=== PATIENT | female | born 1985 | race Caucasian/White ===

== ENCOUNTER 2017-12-19 13:10 | Emergency (ER) | payer BC ==
--- NOTE | 2017-12-19 15:07 | EDM.PDOC ---
ED HPI GENERAL MEDICAL PROBLEM - General Chief Complaint: General Stated Complaint: LETHARGIC/FEVER Time Seen by Provider: 12/19/17 13:55 Source of Information: Reports: Patient History Limitations: Reports: No Limitations - History of Present Illness INITIAL COMMENTS - FREE TEXT/NARRATIVE: 32 year old female presents for evaluation and treatment of fevers and lethargy. State symptoms have been going on for the last few days, worse today. She has not taken her temperature at home but has felt chilled. She also reports lightheadedness, dizziness and trouble sleeping. She denies any syncope , vomiting, unintentional weight loss or weight gain. She reports she is having trouble staying asleep. She reports over the last month she has felt very run down. She reports the last 3 days she has had headaches which she has been taking aleve for. No shortness of breath or chest pain. Patient reports on April 30, 2017 she had a left sided thyroidectomy. This was done at [facility] in [place]. States the path report was clear of any cancer. AT this time she no longer follows-up with [facility]. She reports yesterday she appreciated a lump to the right thyroid. LMP started on Saturday. Patient reports she works for [employer]. She states her job is very active with long hours often working 12-13 hours a day. Review of the patient's records show she had an ultrasound of her neck done about 4 months ago. It showed multiple small lymph nodes. In regards to the patient's bradycardia, she states she has never had a heart rate this low. Review of the patient's clinic records show most hear rates in the 70s with one documented in the 50s. Generalized Pain Score (Numeric/FACES): 3 - Related Data Allergies Allergy/AdvReac Type Severity Reaction Status Date / Time morphine AdvReac Vomiting Verified 12/19/17 13:19 Home Meds: Home Meds Multivitamin with Minerals [Multiple Vitamin] 1 tab PO DAILY 04/26/14 [History] Past Medical History - Past Surgical History Endocrine Surgical History: Reports: Thyroidectomy Social & Family History - Tobacco Use Smoking Status *Q: Current Every Day Smoker Years of Tobacco use: 10 Packs/Tins Daily: 0.5 - Caffeine Use Caffeine Use: Reports: None - Recreational Drug Use Recreational Drug Use: No ED ROS GENERAL - Review of Systems Review Of Systems: See Below Constitutional: Reports: Chills, Fatigue, Other (trouble sleeping). Denies: Fever, Weight Loss, Weight Gain Respiratory: Denies: Shortness of Breath Cardiovascular: Reports: Lightheadedness. Denies: Chest Pain, Syncope Endocrine: Reports: Fatigue, Other (reports right sided thyroid lump) GI/Abdominal: Reports: Nausea. Denies: Vomiting Neurological: Reports: Dizziness, Headache ED EXAM, GENERAL - Physical Exam Exam: See Below Exam Limited By: No Limitations General Appearance: Alert, WD/WN, No Apparent Distress Eye Exam: Bilateral Eye: Normal Inspection Ears: Normal External Exam, Normal Canal, Hearing Grossly Normal, Normal TMs Nose: Normal Inspection Throat/Mouth: Normal Inspection Neck: Normal Inspection, Lymphadenopathy (R) (approximately seth sized papable lymph node vs. thyroid nodule) Respiratory/Chest: No Respiratory Distress, Lungs Clear, Normal Breath Sounds Cardiovascular: Normal Peripheral Pulses, Regular Rate, Rhythm, No Murmur GI/Abdominal: Normal Bowel Sounds, Soft, Non-Tender Neurological: Alert, Oriented, Normal Cognition Psychiatric: Normal Affect, Normal Mood Skin Exam: Warm, Dry, Normal Color EKG INTERPRETATION EKG Date: 12/19/17 Time: 13:40 Rhythm: Other (sinus bradycardia) Rate (Beats/Min): [address]: Normal P-Wave: Present QRS: Normal ST-T: Normal QT: Normal EKG Interpretation Comments: sinus bradycardia at 45 bpm. PAC. No acute ischemic changes. Reviewed by myself and Dr. Pena. Course - Vital Signs Last Recorded V/S: Last Vital Signs Temp 98.3 F 12/19/17 15:58 Pulse 60 12/19/17 13:16 Resp 18 12/19/17 13:16 BP 129/69 12/19/17 13:16 Pulse Ox 100 12/19/17 13:16 Orthostatic Blood Pressure [ 119/75 Standing] Orthostatic Blood Pressure [ 134/70 Sitting] Orthostatic Blood Pressure [ 127/83 Supine] - Orders/Labs/Meds Labs: Laboratory Tests 12/19/17 12/19/17 12/19/17 Range/Units 13:50 13:50 14:06 WBC 7.45 (3.98-10.04) K/mm3 RBC 4.38 (3.98-5.22) M/mm3 Hgb 12.0 (11.2-15.7) gm/L Hct 37.5 (34.1-44.9) % MCV 85.6 (79.4-94.8) fl MCH 27.4 (25.6-32.2) pg MCHC 32.0 L (32.2-35.5) g/dl RDW Std Deviation 45.6 (36.4-46.3) fL Plt Count 278 (182-369) K/mm3 MPV 11.0 (9.4-12.3) fl Neutrophils % (Manual) 68 H (40-60) % Band Neutrophils % 0 (0-10) % Lymphocytes % (Manual) 26 (20-40) % Monocytes % (Manual) 3 (2-10) % Eosinophils % (Manual) 3 (0.7-5.8) % Basophils % (Manual) 0 L (0.1-1.2) Platelet Estimate Adequate RBC Morph Comment Normal Sodium (136-145) mEq/L Potassium (3.5-5.1) mEq/L Chloride (98-107) mEq/L Carbon Dioxide (21-32) mEq/L Anion Gap (5-15) BUN (7-18) mg/dL Creatinine (0.55-1.02) mg/dL Est Cr Clr Drug Dosing mL/min Estimated GFR (MDRD) (>60) mL/min BUN/Creatinine Ratio (14-18) Glucose (74-106) mg/dL Calcium (8.5-10.1) mg/dL Total Bilirubin (0.2-1.0) mg/dL AST (15-37) U/L ALT (14-59) U/L Alkaline Phosphatase (46-116) U/L C-Reactive Protein (<1.0) mg/dL Total Protein (6.4-8.2) g/dl Albumin (3.4-5.0) g/dl Globulin gm/dL Albumin/Globulin Ratio (1-2) Free T4 (0.76-1.46) ng/dL TSH 3rd Generation (0.358-3.74) uIU/mL Urine Color Light yellow (Yellow) Urine Appearance Clear (Clear) Urine pH 6.5 (5.0-8.0) Ur Specific [place] 1.015 (1.005-1.030) Urine Protein Negative (Negative) Urine Glucose (UA) Negative (Negative) Urine Ketones Negative (Negative) Urine Occult Blood 1+ H (Negative) Urine Nitrite Negative (Negative) Urine Bilirubin Negative (Negative) Urine Urobilinogen 0.2 (0.2-1.0) Ur Leukocyte Esterase Negative (Negative) Urine HCG, Qual Negative (NEGATIVE) 12/19/17 Range/Units 14:06 WBC (3.98-10.04) K/mm3 RBC (3.98-5.22) M/mm3 Hgb (11.2-15.7) gm/L Hct (34.1-44.9) % MCV (79.4-94.8) fl MCH (25.6-32.2) pg MCHC (32.2-35.5) g/dl RDW Std Deviation (36.4-46.3) fL Plt Count (182-369) K/mm3 MPV (9.4-12.3) fl Neutrophils % (Manual) (40-60) % Band Neutrophils % (0-10) % Lymphocytes % (Manual) (20-40) % Monocytes % (Manual) (2-10) % Eosinophils % (Manual) (0.7-5.8) % Basophils % (Manual) (0.1-1.2) Platelet Estimate RBC Morph Comment Sodium 141 (136-145) mEq/L Potassium 3.4 L (3.5-5.1) mEq/L Chloride 103 (98-107) mEq/L Carbon Dioxide 25 (21-32) mEq/L Anion Gap 16.4 H (5-15) BUN 10 (7-18) mg/dL Creatinine 0.7 (0.55-1.02) mg/dL Est Cr Clr Drug Dosing 113.24 mL/min Estimated GFR (MDRD) > 60 (>60) mL/min BUN/Creatinine Ratio 14.3 (14-18) Glucose 83 (74-106) mg/dL Calcium 8.5 (8.5-10.1) mg/dL Total Bilirubin 0.6 (0.2-1.0) mg/dL AST 19 (15-37) U/L ALT 25 (14-59) U/L Alkaline Phosphatase 39 L (46-116) U/L C-Reactive Protein < 0.2 (<1.0) mg/dL Total Protein 7.2 (6.4-8.2) g/dl Albumin 3.9 (3.4-5.0) g/dl Globulin 3.3 gm/dL Albumin/Globulin Ratio 1.2 (1-2) Free T4 1.02 (0.76-1.46) ng/dL TSH 3rd Generation 2.738 (0.358-3.74) uIU/mL Urine Color (Yellow) Urine Appearance (Clear) Urine pH (5.0-8.0) Ur Specific [place] (1.005-1.030) Urine Protein (Negative) Urine Glucose (UA) (Negative) Urine Ketones (Negative) Urine Occult Blood (Negative) Urine Nitrite (Negative) Urine Bilirubin (Negative) Urine Urobilinogen (0.2-1.0) Ur Leukocyte Esterase (Negative) Urine HCG, Qual (NEGATIVE) - Radiology Interpretation Free Text/Narrative:: Neck ultrasound: Multiple real-time images of the neck were obtained. Absent right lobe of the thyroid gland is seen compatible with previous partial thyroidectomy. Left lobe of the thyroid gland appears within normal limits. Several small normal-appearing lymph nodes are seen. No cyst or solid abnormality is otherwise seen within the neck. Impression: 1. Incidental findings as noted above. - Re-Assessments/Exams Free Text/Narrative Re-Assessment/Exam: 12/19/17 15:36 I reviewed the labs, EKG and imaging with the patient. At this point is unclear what is causing bradycardia, fatigue and dizziness. I will send her home with a 48-hour Holter monitor and she is instructed to follow up with her primary care provider early next week. She may require additional testing such as possibly a sleep study or more likely imaging of the brain to further evaluate her symptoms. Discharge instructions as documented. Departure - Departure Time of Disposition: 15:37 Disposition: Home, Self-Care 01 Condition: Fair Clinical Impression: Sinus bradycardia, Fatigue - Discharge Information Instructions: Fatigue, Bradycardia, Adult Referrals: Kishan Medrano [Primary Care Provider] - Forms: ED Department Discharge Additional Instructions: Wear the Holter monitor for the next 48 hours as instructed by RT. Follow-up with Dr. Cobb early next for recheck of your symptoms as well as the Holter monitor results. He may require additional testing such as MRI of the brain to further evaluate your symptoms. In the meantime make sure you are drinking plenty of fluids. Okay to work as far as you are doing so safely and are not overly fatigued. Rest. Please return the ER for symptoms change or worsen.
--- NOTE | 2017-12-19 15:16 | US ---
Neck ultrasound: Multiple real-time images of the neck were obtained. Absent right lobe of the thyroid gland is seen compatible with previous partial thyroidectomy. Left lobe of the thyroid gland appears within normal limits. Several small normal-appearing lymph nodes are seen. No cyst or solid abnormality is otherwise seen within the neck. Impression: 1. Incidental findings as noted above. Diagnostic code #2
== END 2017-12-19 15:56 | disposition home or self-care (01) ==
LOC: JD.ED 13:10
DX: R00.1 Bradycardia, unspecified (principal); R53.83 Other fatigue; F17.210 Nicotine dependence, cigarettes, uncomplicated; Z88.5 Allergy status to narcotic agent
CPT/HCPCS: 36415; 76536-26; 76536-50; 80053; 81003; 81025; 84439; 84443; 85007; 85027; 86140; 93005; 93010; 93225; 93226; 99284; 99285-25

== ENCOUNTER 2018-10-15 20:51 | Emergency (ER) | payer BC ==
[2018-10-15] MEDS ORDERED: Sodium Chloride 0.9% 1,000 ML IV ONE (21:24)
[2018-10-15] MEDS ORDERED: Ketorolac 30 MG/ML SDV IVPUSH ONE (21:25)
[2018-10-15] MEDS ORDERED: Ondansetron 4 MG/2 ML SDV IVPUSH ONE (21:25)
[2018-10-15] MEDS ORDERED: diphenhydrAMINE 50 MG/ML SDV IVPUSH ONE (21:26)
--- NOTE | 2018-10-15 21:27 | EDM.PDOC ---
<Amanda Swanson - Last Filed: 10/15/18 23:34> ED HPI GENERAL MEDICAL PROBLEM - General Chief Complaint: Headache Stated Complaint: HEADACHE Time Seen by Provider: 10/15/18 21:23 Source of Information: Reports: Patient History Limitations: Reports: No Limitations - History of Present Illness INITIAL COMMENTS - FREE TEXT/NARRATIVE: 33 yo F comes in today with complaints of migraine headache x 5 days. She states she has a history of migraine GO, but "never this bad". She describes the pain as a constant throbbing/pressure that is getting worse, starting from the back of her neck radiating to top of her head to the back of her eyes. She states she has a burning sensation in her eyes and is sensitive to light. She states she is due for new glasses and has been wearing the wrong prescription for a few months now and can feel the strain on her eyes. She has tried to get an appointment to get this fixed, but can't get in until October. She also c/o N/V/ D. Her last episode of vomiting was at 4pm today when trying to eat almonds, diarrhea x1 today- typical symptom of migraine for her per pt, and her last meal she was able to keep down was a taco from [employer] yesterday. She tried 3 Tylenol and Advil at home with no relief. She is afraid to take migraine medication, especially Imitrex, as she has had "bad reactions in the past". She also mentions she has a h/o hypothyroid and hasn't taken Levothyroxine for 2 months. No other concerns at this time. PCP is Candelario Zhu PA-C. Ip/Mosaic Technician is Dr. Farley in [place]. Headache Pain Score (Numeric/FACES): 8 - Related Data Allergies Allergy/AdvReac Type Severity Reaction Status Date / Time sumatriptan [From Imitrex] Allergy Chest Verified 10/15/18 21:16 Tightness morphine AdvReac Vomiting Verified 10/15/18 21:15 Home Meds: Home Meds Multivitamin with Minerals [Multiple Vitamin] 1 tab PO DAILY 04/26/14 [History] Rizatriptan Benzoate [Rizatriptan] 1 tab PO Q2H PRN #3 tab.rapdis 10/16/18 [Rx] Past Medical History HEENT History: Reports: Impaired Vision Other HEENT History: wears eyeglasses. 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 Social & Family History - Tobacco Use Smoking Status *Q: Current Every Day Smoker Years of Tobacco use: 15 Packs/Tins Daily: 0.5 - Caffeine Use Caffeine Use: Reports: Coffee - Recreational Drug Use Recreational Drug Use: No ED ROS GENERAL - Review of Systems Review Of Systems: ROS reveals no pertinent complaints other than HPI. - Physical Exam Exam: See Below Exam Limited By: No Limitations General Appearance: Alert, WD/WN, Moderate Distress Eye Exam: Bilateral Eye: EOMI, Normal Inspection, PERRL Ears: Normal External Exam, Hearing Grossly Normal Head Exam: Atraumatic, Normocephalic Neck: Normal Inspection, Supple, Non-Tender, Full Range of Motion Respiratory/Chest: No Respiratory Distress, Lungs Clear, Normal Breath Sounds, No Accessory Muscle Use, Chest Non-Tender Cardiovascular: Normal Peripheral Pulses, Regular Rate, Rhythm, No Edema, No Gallop, No JVD, No Murmur, No Rub GI/Abdominal: Soft, Non-Tender, No Organomegaly, No Distention, No Abnormal Bruit, No Mass, Abnormal Bowel Sounds (hyperactive) Neuro Exam (Abbreviated): Alert, Oriented, CN II-XII Intact, Normal Cognition, Normal Gait, Normal Reflexes, No Motor/Sensory Deficits Psychiatric: Normal Affect, Anxious Skin Exam: Warm, Dry, Intact, Normal Color, No Rash Course - Vital Signs Last Recorded V/S: Last Vital Signs Temp 36.9 C 10/15/18 21:15 Pulse 72 10/15/18 21:15 Resp 16 10/15/18 21:15 BP 112/54 L 10/15/18 21:15 Pulse Ox 95 10/15/18 21:15 - Orders/Labs/Meds Meds: Medications Discontinued Medications Generic Name Dose Route Start Last Admin Trade Name Carlton PRN Reason Stop Dose Admin Benztropine Mesylate 1 mg 10/15/18 22:06 10/15/18 22:30 Cogentin PO 10/15/18 22:07 1 mg ONETIME ONE Administration Diphenhydramine HCl 25 mg 10/15/18 21:26 10/15/18 21:45 Benadryl IVPUSH 10/15/18 21:27 25 mg ONETIME ONE Administration Haloperidol Lactate 5 mg 10/15/18 22:06 10/15/18 23:09 Haldol IM 10/15/18 22:07 5 mg ONETIME ONE Administration Sodium Chloride 1,000 mls @ 999 mls/hr 10/15/18 21:24 10/15/18 21:42 Normal Saline IV 10/15/18 22:24 999 mls/hr ONETIME ONE Administration Ketorolac Tromethamine 30 mg 10/15/18 21:25 10/15/18 21:44 Toradol IVPUSH 10/15/18 21:26 30 mg ONETIME ONE Administration Ondansetron HCl 4 mg 10/15/18 21:25 10/15/18 21:42 Zofran IVPUSH 10/15/18 21:26 4 mg ONETIME ONE Administration - Re-Assessments/Exams Free Text/Narrative Re-Assessment/Exam: 10/15/18 21:26 I have ordered Toradol 30mg IV push, Benadryl 25mg IV push, Zofran 4mg IV push 1L Bolus NS 10/15/18 22:14 Pt is not feeling better after the above treatment. She has tried Imitrex in the past but had strange side effects and would like to avoid. After discussing with Dr. Acevedo, I will go ahead and try Haldol IM 5mg and Cogentin 1mg PO. Pt states the only thing that has worked for her in the past is Dilaudid. I explained that this is only a temporary fix and is not recommended for the treatment of headaches. She states she understands and is "willing to try anything to get rid of this headache". 10/15/18 22:56 Pt is hesitant to take the Haldol but has taken the Cogentin. After talking with her, she has decided to try the Haldol after all. 10/15/18 23:34 Change of shift. Will be transferring care to Dr. Acevedo. Departure - Departure Disposition: Home, Self-Care 01 Clinical Impression: Migraine headache - Discharge Information Referrals: Candelario Zhu PA-C [Primary Care Provider] - Forms: ED Department Discharge Additional Instructions: You were seen in the emergency room for a headache with sensitivity to light, nausea, vomiting, and diarrhea. You were treated with IM Haldol and oral Cogentin, with complete resolution of your headache, confirming that your headache was a migraine. Stay well hydrated and get plenty of rest tonight in a dark, quiet place. A prescription for the migraine medicine rizatriptan (Maxalt) has been sent to the [facility], located in the [employer] grocery store. Dissolve one tablet of rizatriptan in your mouth, like a lozenge, at the earliest sign of a migraine headache. You may repeat after 2 hours, to a maximum of 3 tablets within a 24- hour period. If this medicine works for you, talk to your PCP about getting an additional prescription. If any other problems, please do not hesitate to return to the ER. <Gómez Acevedo - Last Filed: 10/16/18 00:05> Course - Re-Assessments/Exams Free Text/Narrative Re-Assessment/Exam: 10/15/18 23:58 The patient reports complete resolution of her headache following IM Haldol. This confirms that her headache was migrainous. I will discharge her home with a prescription for rizatriptan. Departure - Departure Time of Disposition: 23:59 Condition: Good - Discharge Information *PRESCRIPTION DRUG MONITORING PROGRAM REVIEWED*: Not Applicable *COPY OF PRESCRIPTION DRUG MONITORING REPORT IN PATIENT [place]KA: Not Applicable
[2018-10-15] MEDS ORDERED: Benztropine 1 MG Tab PO ONE (22:06)
[2018-10-15] MEDS: Haloperidol Lactate 5 MG/ML SDV IM ONE ×3 (22:30→23:09)
== END 2018-10-16 00:10 | disposition home or self-care (01) ==
LOC: JD.ED 20:51
DX: G43.909 Migraine, unspecified, not intractable, without status migrainosus (principal); E03.9 Hypothyroidism, unspecified; F17.210 Nicotine dependence, cigarettes, uncomplicated; Z88.8 Allergy status to other drugs, medicaments and biological substances; Z88.5 Allergy status to narcotic agent; Z79.899 Other long term (current) drug therapy
CPT/HCPCS: 96361; 96374; 96375; 99283; A9270; J1200; J1630; J1885; J2405; J7040

== ENCOUNTER 2019-03-22 18:21 | Emergency (ER) | payer BC ==
--- NOTE | 2019-03-22 19:09 | EDM.PDOC ---
ED HPI GENERAL MEDICAL PROBLEM - General Source of Information: Reports: Patient History Limitations: Reports: No Limitations - History of Present Illness Onset: Sudden Duration: Minutes: Location: Reports: Head, Neck Quality: Reports: Sharp Severity: Moderate Improves with: Reports: None Worsens with: Reports: None Associated Symptoms: Reports: Headaches. Denies: Chest Pain, Cough, Fever/ Chills, Nausea/Vomiting, Shortness of Breath Head Pain Score (Numeric/FACES): 6 <Nathen Love - Last Filed: 03/22/19 19:03> <Jeyson Pena - Last Filed: 03/23/19 03:57> - General Chief Complaint: Head Injury Stated Complaint: HEAD INJURY Time Seen by Provider: 03/22/19 18:34 - History of Present Illness INITIAL COMMENTS - FREE TEXT/NARRATIVE: The patient presents with a head injury. The patient was riding her horse and the horse was acting funny. She got off to check on him and he reared up and she got hit in the left side of the head by either the horses head or his hoof. She had no LOC but she is a little dazed. She has a headache. She has some mild blurry vision to the left. She also has some neck pain. She has no other injuries. She has no chest pain or abdominal pain she has no numbness or weakness. (Nathen Love) - Related Data Allergies Allergy/AdvReac Type Severity Reaction Status Date / Time sumatriptan [From Imitrex] Allergy Chest Verified 03/22/19 18:32 Tightness morphine AdvReac Vomiting Verified 03/22/19 18:32 Past Medical History HEENT History: Reports: Impaired Vision Other HEENT History: wears eyeglasses. Cardiovascular History: Reports: Other (See Below) Other Cardiovascular History: bradycardia Respiratory History: Reports: Bronchitis, Recurrent MANAGER CONTENT History: Reports: , Other (See Below) Other MANAGER CONTENT History: tubal ligation Musculoskeletal History: Reports: Fracture, Other (See Below) Other Musculoskeletal History: tailbone twice Neurological History: Reports: Migraines Endocrine/Metabolic History: Reports: Hypothyroidism Hematologic History: Reports: Anemia Dermatologic History: Reports: Other (See Below) Other Dermatologic History: dermatitis - Infectious Disease History Infectious Disease History: Reports: Chicken Pox - Past Surgical History Female Surgical History: Reports: Section Endocrine Surgical History: Reports: Thyroidectomy, Other (See Below) Other Endocrine Surgeries/Procedures: partial thyroidectomy. <Nathen Love - Last Filed: 03/22/19 19:03> Social & Family History - Tobacco Use Smoking Status *Q: Current Every Day Smoker Years of Tobacco use: 13 Packs/Tins Daily: 1 - Caffeine Use Caffeine Use: Reports: Coffee - Recreational Drug Use Recreational Drug Use: No <Nathen Love - Last Filed: 03/22/19 19:03> ED ROS GENERAL - Review of Systems Review Of Systems: See Below Constitutional: Reports: No Symptoms HEENT: Reports: No Symptoms Respiratory: Reports: No Symptoms Cardiovascular: Reports: No Symptoms Endocrine: Reports: No Symptoms GI/Abdominal: Reports: No Symptoms : Reports: No Symptoms Musculoskeletal: Reports: No Symptoms Skin: Reports: No Symptoms <Nathen Love Last Filed: 03/22/19 19:03> ED EXAM, HEAD INJURY - Physical Exam Exam: See Below Exam Limited By: No Limitations General Appearance: Alert, No Apparent Distress Head: Other (Pain upon palpation to the left parietal region) Eyes: Bilateral Eye: EOMI (Left eye does lag behing on exam), PERRL Ears: Normal External Exam Nose: Normal Inspection Neck: Tenderness (Moderate tenderness to the mid cervical spine) Respiratory: No Respiratory Distress, Lungs Clear, Normal Breath Sounds Cardiovascular: Regular Rate, Rhythm, No Edema, No Murmur GI/Abdominal Exam: Soft, Non-Tender, No Organomegaly, No Mass Back Exam: Normal Inspection Extremities: Normal Inspection Neurologic: No Motor/Sensory Deficits, Alert, Normal Mood/Affect, Oriented x 3 <Nathen Love - Last Filed: 03/22/19 19:03> Course <Nathen Love - Last Filed: 03/22/19 19:03> <Jeyson Pena - Last Filed: 03/23/19 03:57> - Vital Signs Last Recorded V/S: Last Vital Signs Temp 98.8 F 03/22/19 18:30 Pulse 67 03/22/19 18:30 Resp 20 03/22/19 18:30 BP 113/95 H 03/22/19 18:30 Pulse Ox 100 03/22/19 18:30 - Orders/Labs/Meds Orders: Active Orders 24 hr Category Date Time Status Cervical Spine wo Cont [CT] Stat Exams 03/22/19 18:43 Taken Head wo Cont [CT] Stat Exams 03/22/19 18:43 Taken - Re-Assessments/Exams Free Text/Narrative Re-Assessment/Exam: 03/22/19 19:[address] of her head and cervical spine. It is change of shift Dr Pena to take over. (Nathen Love) Free Text/Narrative Re-Assessment/Exam: 03/22/19 19:45 Have assumed care for Dr. Linda at change of shift. Head CT is good and CT of neck no fx. She does have a concussion. Resting quite comfortably at this time with no acute neuro or other findings at time of my exam at around 19:00 and continues to do relatively well at this time. Mainly feels a mild fogginess , [place] is mild at this time. (Jeyson Pena) Departure <Nathen Love - Last Filed: 03/22/19 19:03> - Departure Time of Disposition: 19:48 Condition: Fair <Jeyson Pena - Last Filed: 03/23/19 03:57> - Departure Disposition: Home, Self-Care 01 Clinical Impression: Head concussion, Facial contusion - Discharge Information Instructions: Concussion, Adult, [id number] Referrals: Candelario Zhu PA-C [Primary Care Provider] - Forms: ED Department Discharge, ED Return to Work/School Form Additional Instructions: As discussed the treatment for head concussion is rest and time void any severe physical exertional activity for about a week. It is recommended do not work tomorrow and then gradually increase activity as you feel up to it. When having symptoms brain rest as well as physical rest is important. Follow up clinic if not getting back to normal within 7 days as expected. Return to ED as needed if symptoms worsening in any way.
--- NOTE | 2019-03-23 06:46 | CT ---
CT cervical spine Technique: Multiple axial sections were obtained from above C1 inferiorly to the mid T2 level. Reconstructed sagittal and coronal images were reviewed. Comparison: No prior cervical spine imaging. Findings: Vertebral body heights and disc spaces are maintained. Vertebral bodies and posterior arches are intact. No fracture is seen. No bony central or bony neural foraminal stenosis is seen. No fracture or subluxation is identified. Impression: 1. Nothing acute is seen on CT study of the cervical spine. Diagnostic code #1 I agree with preliminary report issued by [facility] ([facility] preliminary report dictated on 03/22/19, 8:23 PM Central Time)
--- NOTE | 2019-03-23 06:46 | CT ---
Head CT Technique: Multiple axial sections through the brain were obtained. Intravenous contrast was not utilized. Comparison: No prior intracranial imaging is available. Findings: Ventricles along with basal cisterns and sulci over the convexities are within normal limits for the patient's age. No abnormal parenchymal densities are seen. No evidence of intracranial hemorrhage. No midline shift or mass effect is seen. Bone window settings were reviewed which show no acute calvarial abnormality. Visualized sinuses are clear. Impression: 1. Nothing acute is appreciated on noncontrast head CT study. Diagnostic code #1 Agree with preliminary report issued by [facility]* Radiologic ([facility] preliminary report dictated on 03/22/19, 8:22 PM Central Time)
== END 2019-03-22 20:41 | disposition home or self-care (01) ==
LOC: JD.ED 18:21
DX: S06.0X0A Concussion without loss of consciousness, initial encounter (principal); S00.83XA Contusion of other part of head, initial encounter; Z86.2 Personal history of diseases of the blood and blood-forming organs and certain disorders involving the immune mechanism; F17.210 Nicotine dependence, cigarettes, uncomplicated; Z88.5 Allergy status to narcotic agent; Z88.8 Allergy status to other drugs, medicaments and biological substances; W55.12XA Struck by horse, initial encounter
CPT/HCPCS: 70450; 70450-26; 72125; 72125-26; 99284-25

== ENCOUNTER 2021-05-10 18:30 | Emergency (ER) | payer SELFPAY ==
[2021-05-10] MEDS ORDERED: Ondansetron 4 MG Tab.DIS PO ONE ×2 (19:34→20:47)
[2021-05-10] MEDS ORDERED: HYDROmorphone 1 MG/ML Syringe IM ONE (19:34)
--- NOTE | 2021-05-10 19:38 | EDM.PDOC ---
ED HPI GENERAL MEDICAL PROBLEM - General Chief Complaint: Lower Extremity Injury/Pain Stated Complaint: THROWN OFF HORSE Time Seen by Provider: 05/10/21 19:05 Source of Information: Reports: Patient, Significant Other (Arpan) History Limitations: Reports: No Limitations - History of Present Illness INITIAL COMMENTS - FREE TEXT/NARRATIVE: Ms. Mujica is a very pleasant 36-year-old woman who now presents the ED after being injured by falling off of a horse. She states that she fell off the horse around 16:20 this afternoon, landing on a dirt/grass surface. She was not weari ng a helmet, but states that she did not strike her head. She states that the horse backed up, and stepped on her upper right arm and her medial mid right thigh. She is complaining of pain to her right humerus, her right pelvis, and her right thigh. She denies any other injuries. The patient took some Excedrin around 17:30. Here in the ED, the patient is found to be hemodynamically stable, afebrile, saturating 98% on room air. She appears to be relatively comfortable, in no acute distress. Prior to this afternoon, the patient denies having a recent fever, chills, sore throat, ear pain, nasal or sinus congestion, cough, dyspnea, chest pain, palpitations, nausea, vomiting, constipation, diarrhea, abdominal pain, urinary symptoms, recent weight gain or weight loss, recent bloody bowel movements or black bowel movements, recent joint aches, headaches, or rashes. I reviewed the PMHx/PSHx/SocHx, which was reviewed with the patient by the RN. The patient's PCP is MARCIE Nova. She has not received a COVID vaccination, nor an influenza vaccination this season. 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 [No Known Home Meds] 05/10/21 [History] Past Medical History HEENT History: Reports: Impaired Vision Other HEENT History: wears eyeglasses. Cardiovascular History: Reports: Other (See Below) Other Cardiovascular History: bradycardia Respiratory History: Reports: Bronchitis, Recurrent RN NURSERY History: Reports: , Other (See Below) Other RN NURSERY History: tubal ligation Musculoskeletal History: Reports: Fracture, Other (See Below) Other Musculoskeletal History: tailbone twice Neurological History: Reports: Migraines Endocrine/Metabolic History: Reports: Hypothyroidism Hematologic History: Reports: Anemia Dermatologic History: Reports: Other (See Below) Other Dermatologic History: dermatitis - Infectious Disease History Infectious Disease History: Reports: Chicken Pox - Past Surgical History Female Surgical History: Reports: Section Endocrine Surgical History: Reports: Thyroidectomy, Other (See Below) Other Endocrine Surgeries/Procedures: partial thyroidectomy. Social & Family History - Family History Family Medical History: No Pertinent Family History - Tobacco Use Tobacco Use Status *Q: Current Every Day Tobacco User Years of Tobacco use: 17 Packs/Tins Daily: 0.4 Second Hand Smoke Exposure: No - Caffeine Use Caffeine Use: Reports: Coffee - Recreational Drug Use Recreational Drug Use: No Review of Systems - Review of Systems Review Of Systems: Comprehensive ROS is negative, except as noted in HPI. ED EXAM, GENERAL - Physical Exam Exam: See Below Exam Limited By: No Limitations General Appearance: Alert, WD/WN, No Apparent Distress Eye Exam: Bilateral Eye: EOMI, Normal Inspection Ears: Normal External Exam, Hearing Grossly Normal Nose: Normal Inspection Throat/Mouth: Normal Inspection, Normal Lips, Normal Voice, No Airway Compromise Head: Atraumatic, Normocephalic Neck: Normal Inspection, Full Range of Motion Respiratory/Chest: No Respiratory Distress, Lungs Clear, Normal Breath Sounds, No Accessory Muscle Use Cardiovascular: Normal Peripheral Pulses, Regular Rate, Rhythm, No Edema, No Gallop, No JVD, No Murmur, No Rub Peripheral Pulses: 3+: Radial (L), Radial (R) GI/Abdominal: Normal Bowel Sounds, Soft, Non-Tender, No Organomegaly, No Distention, No Abnormal Bruit, No Mass Extremities: No Pedal Edema, Normal Capillary Refill, Other (Ecchymosis noted over ventral right biceps. Tenderness to the posterior right humerus. Tenderness over the right superior iliac crest. Large hematoma to the mid medial right thigh with associated abrasion. Tenderness to palpation of the posterior right femur, and pain induced with compression and tr) Neurological: Alert, Oriented, Normal Cognition, No Motor/Sensory Deficits Psychiatric: Normal Affect Skin Exam: Warm, Dry, Intact, Normal Color, No Rash Course - Vital Signs Last Recorded V/S: Last Vital Signs Temp 37.6 C 05/10/21 18:59 Pulse 75 05/10/21 18:59 Resp 16 05/10/21 18:59 BP 131/80 05/10/21 18:59 Pulse Ox 98 05/10/21 18:59 - Orders/Labs/Meds Meds: Medications Discontinued Medications Generic Name Dose Route Start Last Admin Trade Name Urbanoq PRN Reason Stop Dose Admin Hydromorphone HCl 1 mg 05/10/21 19:34 05/10/21 19:59 Hydromorphone 1 Mg/Ml Syringe IM 05/10/21 19:35 1 mg ONETIME ONE Administration Ondansetron HCl 4 mg 05/10/21 19:34 05/10/21 19:59 Ondansetron 4 Mg Tab.Dis PO 05/10/21 19:35 4 mg ONETIME ONE Administration - Re-Assessments/Exams Free Text/Narrative Re-Assessment/Exam: 05/10/21 19:35 The patient has bony tenderness to her right humerus, right pelvis, and right femur. I have ordered x-rays to evaluate. In the meantime, the patient will be given IM Dilaudid and Zofran ODT. 05/10/21 20:22 2-view radiographs of the right humerus are read by Dr. Alvarenga as: 1. Nothing acute is seen on 2 view right humerus study. 3-view radiographs of the pelvis and right hip are read by Dr. Alvarenga as: 1. Nothing acute is seen on AP pelvis or 2 view right hip study. 2-view radiographs of the right femur are read by Dr. Alvarenga as: 1. Nothing acute is seen on 2 view right femur study. 05/10/21 20:27 X-ray results discussed with the patient and her fianc. I am recommending that she apply heating pads to the areas of hematoma, to possibly help speed up their dissolution. In the meantime, she can take OTC ibuprofen as needed for discomfort. I advised her to stay active, even though she will be sore. Departure - Departure Time of Disposition: 20:28 Disposition: Home, Self-Care 01 Condition: Good Clinical Impression: Traumatic hematoma of right upper arm, Hematoma of right thigh, Fall from horse - Discharge Information *PRESCRIPTION DRUG MONITORING PROGRAM REVIEWED*: Not Applicable *COPY OF PRESCRIPTION DRUG MONITORING REPORT IN PATIENT [place]: Not Applicable Referrals: Candelario Zhu PA-C [Primary Care Provider] - Forms: ED Department Discharge Additional Instructions: You were seen in the emergency room after falling from a horse, then having a horse stepped on your right arm and right thigh. Work-up in the ER included x-rays of your right upper arm, your right hip and pelvis, and your right thigh. All of your x-rays were normal, with no broken bones or dislocations seen. You have a hematoma to your right biceps area, and to your right mid-thigh. We recommend that you apply a heating pad to these areas to possibly help speed up the dissolution and reabsorption of the blood. We recommend that you take [id number] Tylenol or ibuprofen as needed for discomfort. Ibuprofen will probably work better and last longer. As discussed, it is imperative that you stay active, even though you will be sore. If any other problems, please do not hesitate to return to the ER. Sepsis Event Note (ED) - Evaluation Sepsis Screening Result: No Definite Risk - Focused Exam Vital Signs: Vital Signs Temp Pulse Resp BP Pulse Ox 05/10/21 18:59 37.6 C 75 16 131/80 98
--- NOTE | 2021-05-10 20:20 | CR ---
Pelvis and right hip: AP view of the pelvis was obtained as well as AP and frog-leg lateral views of the right hip. Comparison: No previous study is available. Sacroiliac joints are normal. Joint spaces within both hips are maintained. No fracture or other bony abnormality is appreciated. Impression: 1. Nothing acute is seen on AP pelvis or 2 view right hip study. Diagnostic code #1
--- NOTE | 2021-05-10 20:20 | CR ---
Right humerus: 2 views of the right humerus were obtained. Comparison: No prior humerus study is available. No fracture or other bony abnormality is appreciated. Impression: 1. Nothing acute is seen on 2 view right humerus study. Diagnostic code #1
--- NOTE | 2021-05-10 20:20 | CR ---
Right femur: AP and lateral views of the right femur were obtained. Comparison: No prior femur study is available. Joint space within the right hip and right knee appear within normal limits. No fracture or other bony abnormality is appreciated. Impression: 1. Nothing acute is seen on 2 view right femur study. Diagnostic code #1
== END 2021-05-10 20:45 | disposition home or self-care (01) ==
LOC: JD.ED 18:30
DX: S40.021A Contusion of right upper arm, initial encounter (principal); S70.11XA Contusion of right thigh, initial encounter; Z88.5 Allergy status to narcotic agent; Z88.8 Allergy status to other drugs, medicaments and biological substances; Z72.0 Tobacco use; V80.010A Animal-rider injured by fall from or being thrown from horse in noncollision accident, initial encounter; Y93.52 Activity, horseback riding
CPT/HCPCS: 73060; 73502; 73552; 96372; 99283; A9270; J1170

== ENCOUNTER 2022-04-13 09:32 | Emergency (ER) | payer OTHER ==
[2022-04-13] MEDS ORDERED: Acetaminophen 325 MG Tab PO ONE (10:18)
[2022-04-13] MEDS ORDERED: Ondansetron 4 MG Tab.DIS PO ONE (10:18)
== END 2022-04-13 11:57 | disposition home health service (06) ==
LOC: JD.ED 09:32
DX: S00.83XA Contusion of other part of head, initial encounter (principal); Z88.6 Allergy status to analgesic agent; Z88.8 Allergy status to other drugs, medicaments and biological substances; W55.22XA Struck by cow, initial encounter
CPT/HCPCS: 70450; 70486; 99283; A9270